=== PATIENT | female | born 2000 ===

== ENCOUNTER 2022-06-07 18:55 | Emergency (ER) | payer SELFPAY ==
[~2022-06-07] VITALS: Ht 154.9 cm; Wt 68.2 kg
[2022-06-07 19:07] VITALS: BP 113/68
== END 2022-06-07 20:51 | disposition left against medical advice (07) ==
LOC: EMS 18:55
DX: R42 Dizziness and giddiness (principal); R51.9 Headache, unspecified; Z53.21 Procedure and treatment not carried out due to patient leaving prior to being seen by health care provider